=== PATIENT | female | born 1970 | race Caucasian/White ===

== ENCOUNTER 2016-04-22 15:38 | Emergency (ER) | payer MEDICARE, MEDICAID ==
[~2016-04-22] VITALS: Ht 157.5 cm; Wt 63.6 kg
[~2016-04-22 15:38] MED LIST: OXYC-466 PO
[2016-04-22 15:55] VITALS: BP 136/83; PULSE 99; RESP 24; O2SAT 99
--- NOTE | 2016-04-22 16:29 | ED.REPORT ---
HPI-Rash / Abscess Date of Service Apr 22, 2016 ED Provider: Eduard Ramos DO The patient is a 45 year old female who presents to the emergency department complaining of a red swollen area to her right upper extremity. The site is located just above her right antecubital fossa. She has history of injecting meth and last used 4 days ago. She is unsure if she may have missed the vein. She denies fever, chills or vomiting. Her tetanus is up to date. Nursing Notes Stated Complaint: ABSCESS ON RIGHT ARM/ FEVER Chief Complaint: Extremity Trauma Nursing Notes Reviewed: Yes Allergies: Coded Allergies: Bumble Bee (Verified Allergy, Severe, Anaphylaxis, 04/22/16) latex (Verified Allergy, Severe, Rash,Itching,, 04/22/16) lithium (Verified Allergy, Severe, psychosis, 04/22/16) became toxic divalproex sodium (Verified Allergy, Unknown, Nausea,Vomiting, 04/22/16) hydrocodone (Verified Allergy, Unknown, Rash,Itching,, 06/14/15) paroxetine (Verified Allergy, Unknown, 06/14/15) Scheduled Sulfamethoxazole/Trimeth 800-160 mg (Bactrim DS 800-160 mg) 1 Each Tablet 1 TABLET PO BID Scheduled PRN oxyCODONE-Acetaminophen 10-325 mg (oxyCODONE-Acetaminophen 10-325 mg) 1 Each Tablet 1-2 TABLET PO Q6H PRN PRN For Pain General Time Seen by MD: 16:07 Chief Complaint Red area, Tender/swollen area Hx Obtained From: Patient Arrived By: Walk-in Onset Occurred: 2 days ago Symptom Duration: Since onset Location: : Arm Quality: Painful Severity: Current: Moderate Severity: Maximum: Moderate Pertinent Negative: Pt denies other symptoms Recent Healthcare: No recent doctor visit, No recent hospitalization Similar Sx Previous: No Past Medical History Past Medical History Notes: PCP: Residency clinic Past Medical History Meth dependence (IVDU) Chronic pancreatitis History of cervical cancer Hx of [place] Hx of diverticulitis TIA reported, no imaging on record Reports: Urinary tract infection Past Surgical History pancreatic stent, cardiac stent, diverticulosis, bladder sling Reports: Hysterectomy Family History Noncontributory Smoking History Current Every Day Smoker Social History Alcohol Use: Denies alcohol use Drug Use: In recovery, Meth Other Social History: Local resident Ambulatory Status Independent Review of Systems Constitutional: Denies: Chills, Fever GI: Denies: Vomiting Musculoskeletal: Reports: Extremity pain Skin: Reports Rash, Reports Swelling Complete sys rev & neg: except as marked. Physical Exam Initial Vital Signs Vital Signs (First) Date Time Temp Pulse Resp B/P Pulse Ox O2 Delivery O2 Flow Rate FiO2 04/22/16 15:55 36.1 99 24 136/83 99 Room Air Initial VS: Reviewed Head / Eyes: Atraumatic, Normocephalic, PERRL ENT: Mucous membranes moist, Conjunctiva normal, No scleral icterus Neck: Supple, Non-tender, Full range of motion Respiratory: Breath sounds normal, Clear to auscultation, No respiratory distress Cardiovascular: Regular rate & rhythm, Heart sounds normal, Intact distal pulses Abdomen / GI: Soft, Non-tender, No guarding, No rebound, No distention Lymphatic: No lymphadenopathy Extremities: Vascular intact, Neuro intact, No swelling, No tenderness Neurologic: Alert, Oriented, Nonfocal Psychiatric: Mood/affect normal, Behavior normal, Normal thought content General/Constitutional: Awake, Alert, Cooperative Skin: Color NL, Warm, Dry Rash / Lesion Notes: There is a 1x2 cm abscess just proximal to the antecubital fossa, nonpulsatile. Palpable brachial pulses medial and distal to abscess. The abscess is fluctuant. Interpretation & Diagnostics BEDSIDE US shows superficial abscess with no vascularity or blood flow. Procedures Incision & Drainage Abscess I & D Abscess: Packing was not placed due to small size Time: 16:50 Procedure Performed by: ED physician Consent / Setup / Site Prep: Consent from patient, Time-out performed, Hand hygiene observed, Stand sterile technique Location of Abscess: Just proximal to the right antecubital fossa Skin Preparation Agent: Hibiclens - Chlorhexidine, Normal saline Local Anesthesia: Lidocaine w epi 1% Incised Abscess with Scalpel: #11 Pus Drained: Small, Purulent discharge Irrigation: Yes, Copious Post-Procedure / Complications: Culture obtained, Gram stain ordered, Dressing applied, No complications, Condition improved, Tolerated procedure well , Patient stable Re-Eval/Medical Decision Med Decision/Clinical Course Very small size abscess at the point of injection, it was incised and drained at the bedside, will treat with Bactrim and follow-up in 2 days. Return precautions given. Source of Hx: Old records Re-Evaluation/Progress : Time of Eval: 16:25 Re-Evaluation/Progress Note: Discussed plan to drain abscess. Counseled Regarding: Diagnosis, Need for follow-up, When/why to return to ED Discharge & Departure Impression: Primary Impression: Abscess Additional Impression: Methamphetamine abuse Disposition: Home Discharge Condition All VS Reviewed: Yes Condition: Stable Additional Instructions: Thank you for entrusting us with your care today. We were able to incise and drain the abscess. Make sure to keep the area clean and dry. Take the antibiotics as prescribed. You will need to have the wound rechecked in the next 2-3 days. I recommend that you stop using meth. Please return to the emergency department if you develop increased pain, swelling or redness, fever, chills, vomiting, or any other new or concerning symptoms. Referrals: [facility] Residency Clinic (PCP) Scribe Attestation Portions of this note were transcribed by Kay Orona. I, Dr. Ramos personally performed the history, physical exam and medical decision-making; I reviewed and confirmed the accuracy of the information in the transcribed note. Signed by: Travis Rosales, 04/22/2016 at 1720. copies to: [facility] Eduard Ramos DO Apr 22, 2016 16:29 Kay Orona Apr 22, 2016 16:35
[2016-04-22] MEDS ORDERED: Lidocaine 1%-Epi 1:100,000 20 mL Inj ONE (16:33)
[2016-04-22] MEDS ORDERED: Trimethoprim-Sulfa 160 mg-800 mg Tablet PO ONE (17:15)
[2016-04-22] MEDS ORDERED: SULF1TAB35 PO (17:15)
[2016-04-22 17:30] VITALS: PULSE 80; RESP 16
== END 2016-04-22 17:31 | disposition home or self-care (01) ==
LOC: SED 15:38
DX: L03.113 Cellulitis of right upper limb (principal); F15.20 Other stimulant dependence, uncomplicated; I25.2 Old myocardial infarction; F17.200 Nicotine dependence, unspecified, uncomplicated; Z88.5 Allergy status to narcotic agent; Z85.41 Personal history of malignant neoplasm of cervix uteri; Z91.040 Latex allergy status; Z86.73 Personal history of transient ischemic attack (TIA), and cerebral infarction without residual deficits; Z87.440 Personal history of urinary (tract) infections; Z95.5 Presence of coronary angioplasty implant and graft; Z88.8 Allergy status to other drugs, medicaments and biological substances

== ENCOUNTER 2016-04-25 06:23 | Emergency (ER) | payer OTHER, MEDICARE, MEDICAID ==
[~2016-04-25] VITALS: Ht 157.5 cm; Wt 59.1 kg
[~2016-04-25 06:23] MED LIST changes: +SULF1TAB35 PO
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
[2016-04-25 07:22] VITALS: BP 145/88; PULSE 118; RESP 26; O2SAT 98
[2016-04-25] MEDS ORDERED: cefTRIAXone Inj 1,000 MG, Lidocaine PF 1% Inj 2.1 ML in Syringe 0 EACH IM ONE (08:05)
[2016-04-25] MEDS ORDERED: Ondansetron 8 mg ODT Tablet PO ONE (08:05)
[2016-04-25] MEDS ORDERED: TdaP Vaccine 0.5 mL Inj IM ONE (08:05)
[2016-04-25 08:19] LABS: BASOPHILS % (AUTO) 0.4 % (0-3); EOSINOPHILS % (AUTO) 0.4 % (0-5); MONOCYTES % (AUTO) 10.8 % (4-12); Mean Corpuscular Hemoglobin 32.4 pg (27.0-35.0); Mean Corpuscular Volume 93.1 fL (81-100); NEUTROPHILS % (AUTO) 68.1 % (40-74); Platelet Count 293 bil/L (150-400)
[2016-04-25] MEDS ORDERED: Trimethoprim-Sulfa 160 mg-800 mg Tablet PO ONE (09:15)
[2016-04-25] MEDS ORDERED: Bacitracin Ointment Packet TOPICAL ONE (09:15)
[2016-04-25] MEDS ORDERED: oxyCODONE-Acetamin 5-325 mg Tablet PO ONE (09:25)
--- NOTE | 2016-04-25 09:25 | DRSVH ---
PROCEDURE: X-RAY RIGHT HAND, MINIMUM THREE VIEWS ([id number]) INDICATIONS: pain TECHNIQUE: 4 views of the hand(s) acquired. COMPARISON: [facility], CR, XR HAND 3VW RT, 05/09/2015, 0:48. FINDINGS: Bones: No fractures or dislocations. Carpal bones are normally aligned. No suspicious bony lesions . Incidentally noted ulnar minus variance Soft tissues: No suspicious soft tissue calcifications. IMPRESSION: Negative right hand as above Dictated by: Alireza Fernandez M.D. on 04/25/2016 at 9:21 Approved by: Alireza Fernandez M.D. on 04/25/2016 at 9:23
--- NOTE | 2016-04-25 11:06 | DRSVH ---
PROCEDURE: X-RAY MANDIBLE COMPLETE, MINIMUM FOUR VIEWS ([id number]) INDICATIONS: pain (L) mandible TECHNIQUE: 6 views of the mandible were acquired. COMPARISON: None. FINDINGS: Bones: No fractures or dislocations. No suspicious bony lesions. Soft tissues: Visualized sinuses appear clear. No suspicious soft tissue densities. IMPRESSION: No radiographically visible fracture. Dictated by: Alireza Fernandez M.D. on 04/25/2016 at 11:00 Approved by: Alireza Fernandez M.D. on 04/25/2016 at 11:03
[2016-04-25] MEDS ORDERED: OXYC1TAB24 PO (13:08)
[2016-04-25] MEDS ORDERED: SULF1TAB7 PO (13:08)
[2016-04-25] MEDS ORDERED: IBUP400T22 PO (13:08)
[2016-04-25] MEDS ORDERED: BACI28.4 TP (13:08)
[2016-04-25 13:42] VITALS: BP 126/74; PULSE 88; RESP 14; O2SAT 99
[2016-04-26 08:07] LABS: Hepatitis A Antibody IgM Negative (Negative); Hepatitis B Core Antibody IgM Negative (Negative)
== END 2016-04-25 13:43 | disposition home or self-care (01) ==
LOC: SED 06:23 → EDBD 06:23 → SED 13:43
DX: S60.221A Contusion of right hand, initial encounter (principal); S00.83XA Contusion of other part of head, initial encounter; S21.111A Laceration without foreign body of right front wall of thorax without penetration into thoracic cavity, initial encounter; S61.214A Laceration without foreign body of right ring finger without damage to nail, initial encounter; V18.0XXA Pedal cycle driver injured in noncollision transport accident in nontraffic accident, initial encounter; Y04.8XXA Assault by other bodily force, initial encounter; Y92.830 Public park as the place of occurrence of the external cause; Y93.55 Activity, bike riding; Y99.8 Other external cause status; L02.413 Cutaneous abscess of right upper limb; F15.20 Other stimulant dependence, uncomplicated; I25.2 Old myocardial infarction; F17.200 Nicotine dependence, unspecified, uncomplicated; Z87.440 Personal history of urinary (tract) infections; Z95.818 Presence of other cardiac implants and grafts; Z88.8 Allergy status to other drugs, medicaments and biological substances; Z88.5 Allergy status to narcotic agent
CPT/HCPCS: 29130; 36415; 70110; 73130; 80053; 85025; 86705; 86709; 87340; 87341; 87491; 87591; 96372; 99285; G0433; G0472; J0696

== ENCOUNTER 2016-07-17 18:28 | Emergency (ER) | payer MEDICARE, MEDICAID ==
[~2016-07-17 18:28] MED LIST changes: +BACI28.4 TP; +IBUP400T22 PO; +OXYC1TAB24 PO; +SULF1TAB7 PO
[2016-07-17] MEDS ORDERED: Ondansetron 2 mg/mL 2 mL Inj ONE (18:39)
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
[2016-07-17] MEDS ORDERED: HYDROmorphone 1 mg/mL Inj IVPUSH PRN (18:45)
[2016-07-17] MEDS ORDERED: HYDROmorphone 1 mg/mL Inj IVPUSH ONE ×2 (18:45)
[2016-07-17] MEDS ORDERED: 0.9% Sodium Chloride 1,000 ML IV ONE ×3 (18:45→20:35)
[2016-07-17] MEDS: Ondansetron 2 mg/mL 2 mL Inj IVPUSH PRN ×2 (18:48→22:58)
[2016-07-17 18:50] LABS: BASOPHILS % (AUTO) 0.5 % (0-3); EOSINOPHILS % (AUTO) 2.5 % (0-5); Mean Corpuscular Hemoglobin 32.4 pg (27.0-35.0); Mean Corpuscular Volume 92.2 fL (81-100); NEUTROPHILS % (AUTO) 49.4 % (40-74); Platelet Count 315 bil/L (150-400)
[2016-07-17 19:11] LABS: Lipase 33 U/L (13-60); Magnesium 2.1 mg/dL (1.6-2.6)
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
--- NOTE | 2016-07-17 19:35 | DRSVH ---
PROCEDURE: X-RAY RIGHT ELBOW, TWO VIEWS ([id number]) INDICATIONS: trauma TECHNIQUE: The 3 views of the elbow were acquired. COMPARISON: None. FINDINGS: Bones: No fractures or dislocations. No suspicious bony lesions. Soft tissues: No elbow joint effusion. No suspicious soft tissue calcifications. There is abnormal gas in the biceps tendon region seen on the lateral view through the distal arm, predominantly ventr ally. On the frontal view this gas is predominantly located laterally. IMPRESSION: Gas within the soft tissues, of the anterior lateral distal arm, without foreign body or fracture found. Please correlate for whether infection or penetrating trauma has produced this appe arance. Dictated by: Noman Arora M.D. on 07/17/2016 at 19:33 Approved by: Noman Arora M.D. on 07/17/2016 at 19:34
--- NOTE | 2016-07-17 19:40 | DRSVH ---
PROCEDURE: X-RAY LEFT HAND, TWO VIEWS ([id number]) INDICATIONS: trauma TECHNIQUE: 2 views of the hand(s) acquired. COMPARISON: None. FINDINGS: Bones: No fractures or dislocations. Carpal bones are normally aligned. No suspicious bony lesions . Soft tissues: No suspicious soft tissue calcifications. Soft tissue swelling of the dorsum of the h and, but no fracture or foreign body material found. IMPRESSION: No definite osseous injury found, no foreign body seen. Swelling over the dorsum of the hand. Dictated by: Noman rAora M.D. on 07/17/2016 at 19:38 Approved by: Noman Arora M.D. on 07/17/2016 at 19:39
[2016-07-17] MEDS ORDERED: Flumazenil 0.1 mg/mL 5 mL Inj IV ONE (22:10)
[2016-07-17 22:28] LABS: APPEARANCE,URINE HAZY (CLEAR,HAZY); COLOR,URINE YELLOW (YELLOW); OCCULT BLOOD,URINE NEGATIVE (NEGATIVE); PH,URINE 6.5 (5.0-8.0); UROBILINOGEN,URINE NORMAL (NORMAL)
[2016-07-17] MEDS ORDERED: _oxyCODONE/APAP 5-325 mg Tablet PO PRN (23:40)
[2016-07-17] MEDS ORDERED: _Ondansetron ODT 4 mg Tablet PO PRN (23:40)
[2016-07-17] MEDS ORDERED: MetoCLOpramide 5 mg/mL 2 mL Inj IVPUSH ONE (23:40)
[2016-07-18] MEDS ORDERED: MetoCLOpramide 5 mg/mL 2 mL Inj IVPUSH ONE (00:15)
[2016-07-18 00:40] VITALS: BP 141/80; PULSE 66; RESP 15; O2SAT 100
== END 2016-07-18 00:30 | disposition home or self-care (01) ==
LOC: SED 18:28
DX: S51.011A Laceration without foreign body of right elbow, initial encounter (principal); S51.812A Laceration without foreign body of left forearm, initial encounter; S50.01XA Contusion of right elbow, initial encounter; S50.12XA Contusion of left forearm, initial encounter; S60.022A Contusion of left index finger without damage to nail, initial encounter; S60.032A Contusion of left middle finger without damage to nail, initial encounter; S30.811A Abrasion of abdominal wall, initial encounter; V17.4XXA Pedal cycle driver injured in collision with fixed or stationary object in traffic accident, initial encounter; Y93.55 Activity, bike riding; Y99.8 Other external cause status; Y92.481 Parking lot as the place of occurrence of the external cause; F15.229 Other stimulant dependence with intoxication, unspecified; F17.200 Nicotine dependence, unspecified, uncomplicated; I25.2 Old myocardial infarction; Z85.41 Personal history of malignant neoplasm of cervix uteri; Z87.440 Personal history of urinary (tract) infections; Z88.5 Allergy status to narcotic agent; Z88.8 Allergy status to other drugs, medicaments and biological substances
CPT/HCPCS: 12001; 36415; 71010; 72040; 73070; 73090; 73120; 80053; 81000; 83690; 83735; 84702; 85014; 85018; 85025; 96361; 96374; 96375; 96376; 99285; G0390; J1170; J2060; J2405; J2765; J7030